=== PATIENT | male | born 1945 | race Caucasian/White ===

== ENCOUNTER 2017-07-29 07:22 | Observation (INO) ==
[2017-07-29] MEDS ORDERED: ASPIRIN PO STA (07:53)
[2017-07-29 08:04] LABS: MANUAL DIFF NEEDED? NO
[2017-07-29 08:05] LABS: BASO% 0.3 % (0.0-0.8); EOS# 0.29 X1000 (0.0-0.7); EOS% 3.9 % (0.0-10.0); HEMATOCRIT 42.6 % (42.0-52.0); HEMOGLOBIN 15.1 g/dL (14.0-18.0); IMM GRAN# 0.02 X1000 (0.0-0.04); IMM GRAN% 0.3 % (0.0-0.5); LYMPH# 1.61 X1000 (1.2-3.4); LYMPH% 21.6 % (20.5-51.1); MCH 34.8 PG (27-31); MCHC 35.4 g/dL (33-37); MCV 98.2 FL (81-99); MONO# 0.92 X1000 (0.11-0.59); MONO% 12.3 % (1.7-9.3); MPV 10.1 FL (7.4-10.4); NEUT% 61.6 % (42.2-75.2); PLT 195 X1000 (130-400); RBC 4.34 XMIL (4.7-6.1)
[2017-07-29 08:14] LABS: INR 0.94; PROTIME 9.8 Seconds (9.2-11.7); PTT 25.6 Seconds (22.0-36.0)
[2017-07-29 08:32] LABS: AGAP 10; ALBUMIN 4.2 g/dL (3.5-5.0); ALKALINE PHOSPHATASE 68 U/L (32-122); BUN 16 mg/dL (8-22); CALCIUM 9.4 mg/dL (8.8-10.2); CHLORIDE 103 mmol/L (98-107); CK PROFILE 58 U/L (24-204); COSMO 282; GOT 17 U/L (10-34); GPT 21 U/L (10-44); MAGNESIUM 2.1 mg/dL (1.5-2.7); POTASSIUM 4.1 mmol/L (3.5-5.1); SODIUM 140 mmol/L (136-145); TCO2 27 mmol/L (25-35); TOTAL BILIRUBIN 0.86 mg/dL (0.20-1.00); TOTAL PROTEIN 6.7 g/dL (6.3-8.3)
[2017-07-29] MEDS: NITROGLYCERIN TOP SCH ×2 (09:29→14:59)
[2017-07-29] MEDS ORDERED: TYLENOL PO PRN (09:46)
[2017-07-29 16:16] VITALS: BP 124/82
[2017-07-29] MEDS ORDERED: COSOPT OPHTH SOLN OPH SCH (21:00)
[2017-07-29] MEDS ORDERED: COREG PO SCH (21:00)
[2017-07-29] MEDS ORDERED: PLENDIL PO SCH (21:00)
[2017-07-29] MEDS ORDERED: COENZYME Q10 PO SCH (21:00)
[2017-07-30] MEDS ORDERED: ASPIRIN PO SCH (09:00)
[2017-07-30] MEDS ORDERED: EFFIENT PO SCH (09:00)
[2017-07-30] MEDS ORDERED: ZYRTEC PO SCH (09:00)
[2017-07-30] MEDS ORDERED: CELEBREX PO SCH (09:00)
[2017-07-30] MEDS ORDERED: HYDROCHLOROTHIAZIDE PO SCH (09:00)
[2017-07-30] MEDS ORDERED: BENICAR PO SCH (09:00)
[2017-07-31] MEDS ORDERED: CRESTOR PO SCH (09:00)
[2017-07-31] MEDS ORDERED: PRILOSEC PO SCH (09:00)
== END 2017-07-29 19:50 | disposition home or self-care (01) ==
LOC: 3S 07:22 → ED 07:22
PROVIDERS: ADMIT Internal Medicine; ATTEND Internal Medicine